=== PATIENT | male | born 1970 | race Caucasian/White ===

== ENCOUNTER 2017-04-13 14:51 | Outpatient (CLI) | payer OTHER ==
[2017-04-13 15:36] LABS: BASOPHILS % (AUTO) 0.5 % (0-1); EOSINOPHILS # (AUTO) 0.2 X10'3 (0-0.9); EOSINOPHILS % (AUTO) 3.7 % (0-6); HEMATOCRIT 41.4 % (42.0-52.0); HEMOGLOBIN 14.3 g/dl (14.0-17.9); LYMPHOCYTES # (AUTO) 1.3 X10'3 (1.1-4.8); LYMPHOCYTES % (AUTO) 31.8 % (21-51); MEAN CORPUSCULAR HEMOGLOBIN 30.3 PG (27.0-31.0); MEAN CORPUSCULAR HGB CONC 34.5 % (33.0-36.5); MEAN CORPUSCULAR VOLUME 87.8 FL (78-98); MEAN PLATELET VOLUME 7.9 FL (7.4-10.4); MONOCYTES # (AUTO) 0.3 X10'3 (0-0.9); NEUTROPHILS # (AUTO) 2.4 X10'3 (1.8-7.7); PLATELET COUNT 296 X10'3 (140-440); RED BLOOD COUNT 4.71 X10'6 (4.70-6.10); RED CELL DISTRIBUTION WIDTH 12.6 % (11.5-14.5); WHITE BLOOD COUNT 4.2 X10'3 (4.5-11.0)
[2017-04-13 15:46] LABS: CLARITY,URINE CLEAR (Clear); COLOR,URINE YELLOW (Yellow); GLUCOSE, URINE NEGATIVE (Neg); KETONES,URINE NEGATIVE (Neg); LEUKOCYTE ESTERASE ,URINE NEGATIVE (Neg); NITRITES, URINE NEGATIVE (Neg); OCCULT BLOOD,URINE NEGATIVE (Neg); PH,URINE 5.5 (4.8-8.0); PROTEIN,URINE NEGATIVE (Neg); UROBILINOGEN,URINE 0.2 E.U/dL (0.2-1.0)
[2017-04-13 15:50] LABS: UA COLLECTION TYPE CLN CATCH MIDSTREAM
[2017-04-13 16:00] LABS: ALANINE AMINOTRANSFERASE 39 U/L (12-78); ALBUMIN 3.8 G/DL (3.4-5.0); ALBUMIN/GLOBULIN RATIO 1.1 (1.1-1.5); ALKALINE PHOSPHATASE 46 IU/L (46-116); ANION GAP 8 (8-16); ASPARTATE AMINO TRANSFERASE 23 U/L (10-37); BILIRUBIN,TOTAL 0.5 MG/DL (0.1-1.0); BLOOD UREA NITROGEN 17 MG/DL (7-18); BUN/CREATININE RATIO 14.2 (5.4-32.0); CALCIUM 8.8 MG/DL (8.5-10.1); CHLORIDE 108 MMOL/L (99-107); CHOL/HDL RATIO 3.3 (0.00-4.99); CHOLESTEROL 157 MG/DL (0-200); GLUCOSE 94 MG/DL (70-104); HDL CHOLESTEROL 48 MG/DL (35-60); LDL CHOLESTEROL 103 MG/DL (50-100); POTASSIUM 3.6 MMOL/L (3.5-5.1); SODIUM 141 MMOL/L (135-145); TOTAL CARBON DIOXIDE 24.9 MMOL/L (24-32); TOTAL PROTEIN 7.4 G/DL (6.4-8.2); TRIGLYCERIDES 68 MG/DL (20-135); eGFR 65 ML/MIN
[2017-04-16 08:08] LABS: VITAMIN D, 25-HYDROXY 43.9 ng/mL (30.0-100.0)
== END 2017-04-13 23:59 | disposition home or self-care (01) ==
LOC: LAB 14:51
PROVIDERS: ATTEND General Practice
DX: E55.9 Vitamin D deficiency, unspecified (principal); E78.5 Hyperlipidemia, unspecified; Z79.899 Other long term (current) drug therapy
CPT/HCPCS: 36415; 80053; 80061; 81003; 82306; 82607; 84443; 85025

== ENCOUNTER 2017-11-19 15:46 | Emergency (ER) | payer OTHER ==
[~2017-11-19] VITALS: Ht 175.3 cm; Wt 87.7 kg
[~2017-11-19 15:46] MED LIST: HYDR-3965 PO
[2017-11-19 16:26] LABS: BASOPHILS % (AUTO) 0.2 % (0-1); EOSINOPHILS # (AUTO) 0.2 X10'3 (0-0.9); EOSINOPHILS % (AUTO) 2.4 % (0-6); HEMATOCRIT 39.8 % (42.0-52.0); HEMOGLOBIN 13.7 g/dl (14.0-17.9); LYMPHOCYTES # (AUTO) 1.1 X10'3 (1.1-4.8); LYMPHOCYTES % (AUTO) 13.7 % (21-51); MEAN CORPUSCULAR HEMOGLOBIN 30.5 PG (27.0-31.0); MEAN CORPUSCULAR HGB CONC 34.4 % (33.0-36.5); MEAN CORPUSCULAR VOLUME 88.8 FL (78-98); MEAN PLATELET VOLUME 7.1 FL (7.4-10.4); MONOCYTES # (AUTO) 0.6 X10'3 (0-0.9); MONOCYTES % (AUTO) 7.2 % (2-12); NEUTROPHILS # (AUTO) 5.9 X10'3 (1.8-7.7); NEUTROPHILS % (AUTO) 76.5 % (42-75); PLATELET COUNT 359 X10'3 (140-440); RED BLOOD COUNT 4.48 X10'6 (4.70-6.10); RED CELL DISTRIBUTION WIDTH 12.3 % (11.5-14.5); WHITE BLOOD COUNT 7.7 X10'3 (4.5-11.0)
[2017-11-19] MEDS ORDERED: normal saline 1000ML IV soln IVB ONE (16:35)
[2017-11-19] MEDS ORDERED: morphine 4 MG/ML inj SYRINge IV ONE (16:35)
[2017-11-19] MEDS ORDERED: pantoprazole 40 MG vial IV ONE (16:35)
[2017-11-19 16:40] LABS: ALANINE AMINOTRANSFERASE 90 U/L (12-78); ALBUMIN 3.2 G/DL (3.4-5.0); ALBUMIN/GLOBULIN RATIO 0.7 (1.1-1.5); ALKALINE PHOSPHATASE 85 IU/L (46-116); ANION GAP 8 (8-16); ASPARTATE AMINO TRANSFERASE 46 U/L (10-37); BILIRUBIN,TOTAL 0.5 MG/DL (0.1-1.0); BLOOD UREA NITROGEN 15 MG/DL (7-18); BUN/CREATININE RATIO 10.7 (5.4-32.0); CALCIUM 9.2 MG/DL (8.5-10.1); CHLORIDE 104 MMOL/L (99-107); GLUCOSE 129 MG/DL (70-104); LIPASE 120 U/L (73-393); POTASSIUM 3.5 MMOL/L (3.5-5.1); SODIUM 141 MMOL/L (135-145); TOTAL CARBON DIOXIDE 29.1 MMOL/L (24-32); TOTAL PROTEIN 7.8 G/DL (6.4-8.2); eGFR 54 ML/MIN
[2017-11-19] MEDS ORDERED: ondansetron/PF 4mg/2ml inj IV ONE (17:15)
[2017-11-19 18:32] VITALS: BP 134/98
== END 2017-11-19 19:26 | disposition home or self-care (01) ==
LOC: ER 15:47
DX: K80.20 Calculus of gallbladder without cholecystitis without obstruction (principal); E78.00 Pure hypercholesterolemia, unspecified; Z79.899 Other long term (current) drug therapy
CPT/HCPCS: 36415; 76700; 80053; 83690; 84484; 85025; 93005; 96361; 96374; 96375; 99285; C9113; J2270; J2405; J7030

== ENCOUNTER 2017-11-28 21:05 | Inpatient (IN) | payer OTHER ==
[~2017-11-28] VITALS: Ht 175.3 cm; Wt 84.5 kg
[~2017-11-28 21:05] MED LIST changes: +temazepam 15mg capsule PO PRN
[2017-11-28 22:10] LABS: BASOPHILS % (AUTO) 0.2 % (0-1); EOSINOPHILS # (AUTO) 0.3 X10'3 (0-0.9); EOSINOPHILS % (AUTO) 2.7 % (0-6); HEMATOCRIT 41.3 % (42.0-52.0); LYMPHOCYTES # (AUTO) 1.1 X10'3 (1.1-4.8); LYMPHOCYTES % (AUTO) 8.4 % (21-51); MEAN CORPUSCULAR HEMOGLOBIN 29.9 PG (27.0-31.0); MEAN CORPUSCULAR HGB CONC 33.9 % (33.0-36.5); MEAN CORPUSCULAR VOLUME 88.1 FL (78-98); MEAN PLATELET VOLUME 7.7 FL (7.4-10.4); MONOCYTES # (AUTO) 0.8 X10'3 (0-0.9); MONOCYTES % (AUTO) 6.4 % (2-12); NEUTROPHILS # (AUTO) 10.5 X10'3 (1.8-7.7); NEUTROPHILS % (AUTO) 82.3 % (42-75); PLATELET COUNT 475 X10'3 (140-440); RED BLOOD COUNT 4.69 X10'6 (4.70-6.10); RED CELL DISTRIBUTION WIDTH 12.4 % (11.5-14.5); WHITE BLOOD COUNT 12.8 X10'3 (4.5-11.0)
[2017-11-28 22:22] LABS: ALANINE AMINOTRANSFERASE 52 U/L (12-78); ALBUMIN 3.3 G/DL (3.4-5.0); ALBUMIN/GLOBULIN RATIO 0.7 (1.1-1.5); ALKALINE PHOSPHATASE 80 IU/L (46-116); ANION GAP 11 (8-16); ASPARTATE AMINO TRANSFERASE 50 U/L (10-37); BILIRUBIN,TOTAL 0.6 MG/DL (0.1-1.0); BLOOD UREA NITROGEN 17 MG/DL (7-18); BUN/CREATININE RATIO 12.6 (5.4-32.0); CALCIUM 9.1 MG/DL (8.5-10.1); CHLORIDE 102 MMOL/L (99-107); CREATININE 1.35 MG/DL (0.60-1.10); GLUCOSE 155 MG/DL (70-104); POTASSIUM 3.7 MMOL/L (3.5-5.1); SODIUM 138 MMOL/L (135-145); TOTAL CARBON DIOXIDE 25.5 MMOL/L (24-32); TOTAL PROTEIN 8.3 G/DL (6.4-8.2); eGFR 57 ML/MIN
[2017-11-28 22:24] LABS: PARTIAL THROMBOPLASTIN TIME 28 SECONDS (22-32); PROTHROMBIN TIME 10.4 SECONDS (9.0-12.0)
[2017-11-28] MEDS ORDERED: ondansetron/PF 4mg/2ml inj IV ONE (22:25)
[2017-11-28] MEDS ORDERED: morphine 4 MG/ML inj SYRINge IV ONE (22:25)
[2017-11-28] MEDS ORDERED: normal saline 1000ML IV soln IVB ONE (22:25)
[2017-11-28 22:29] LABS: CLARITY,URINE CLEAR (Clear); COLOR,URINE YELLOW (Yellow); GLUCOSE, URINE NEGATIVE (Neg); KETONES,URINE TRACE mg/dl (Neg); LEUKOCYTE ESTERASE ,URINE NEGATIVE (Neg); NITRITES, URINE NEGATIVE (Neg); OCCULT BLOOD,URINE NEGATIVE (Neg); PROTEIN,URINE NEGATIVE (Neg)
[2017-11-28] MEDS ORDERED: iohexol 350MG/ML 100ml bottle IV ONE (22:30)
[2017-11-28 22:41] LABS: UA COLLECTION TYPE CLN CATCH MIDSTREAM
[2017-11-28] MEDS ORDERED: levoFLOXACIN-Levaquin 750MG/D5 150 ML IV STA (22:59)
[2017-11-28] MEDS ORDERED: normal saline 1000ml 1,000 ML IV ONE (23:00)
[2017-11-28] MEDS ORDERED: heparin 10,000 units/1 ML INJ IV PRN (23:40)
[2017-11-28] MEDS ORDERED: heparin 10,000 units/1 ML INJ IV ONE ×2 (23:40→23:45)
[2017-11-28] MEDS ORDERED: morphine 2 MG/ML inj. syringe IV ONE (23:45)
[2017-11-29] VITALS (7 sets, daily range): BP systolic 110–133; BP diastolic 73–89
[2017-11-29] MEDS ORDERED: HYDROcodone/acetaminophen 5mg/325mg tablet PO PRN
[2017-11-29] MEDS ORDERED: diphenhydrAMINE 25mg capsule PO PRN
[2017-11-29] MEDS ORDERED: bisacodyl 10mg suppository rectal RC PRN
[2017-11-29] MEDS ORDERED: HYDROmorphone 1 mg/ml syringe IV PRN ×2
[2017-11-29] MEDS ORDERED: diphenhydrAMINE 50 mg/ml inj IV PRN
[2017-11-29] MEDS ORDERED: acetaminophen 650mg rectal suppository RC PRN
[2017-11-29] MEDS ORDERED: acetaminophen 325mg tablet PO PRN
[2017-11-29] MEDS ORDERED: HYDROcodone/acetaminophen 10/325mg tab PO PRN
[2017-11-29] MEDS ORDERED: mag hydrox/Alum hydrox/simeth 30ml oral suspension PO PRN
[2017-11-29] MEDS ORDERED: magnesium hydroxide 30ml (MOM) UD suspension PO PRN
[2017-11-29] MEDS ORDERED: morphine 2 MG/ML inj. syringe IV PRN
[2017-11-29 00:26] LABS: ABG BASE EXCESS -2.2 mmol/L (-2.0-3.0); ABG HCO3 21.4 mmol/L (22.0-26.0); ABG OXYGEN SATURATION 95.1 % (95-98); ABG PCO2 (T) 33.5 mmHg (35.0-48.0); ABG PH (T) 7.424 (7.350-7.450); ABG PO2 (T) 76.9 mmHg (83-108); ALLEN'S TEST Positive; FCOHb 0.7 % (0.5-1.5); FMetHb 0.1 % (0.3-1.12); FO2Hb 94.3 % (94-100); PATIENT TEMPERATURE 37.1; RESPIRATORY RATE (OBSERVED) 18 b/min; TOTAL HEMOGLOBIN 13.2 G/dl (14.0-18.0)
[2017-11-29] MEDS ORDERED: heparin 10,000 units/1 ML INJ IV ONE (00:40)
[2017-11-29] MEDS ORDERED: heparin 10,000 units/1 ML INJ IV PRN (00:40)
[2017-11-29] MEDS: normal saline 1000ml 1,000 ML IV SCH ×2 (01:56→09:08)
[2017-11-29 02:11] LABS: HEMOGLOBIN A1C 5.5 % (4.5-6.2)
[2017-11-29 02:16] LABS: CREATINE KINASE 39 U/L (39-308); LIPASE 123 U/L (73-393); MAGNESIUM 1.8 MG/DL (1.5-2.4); PHOSPHORUS 1.9 MG/DL (2.3-4.5)
[2017-11-29] MEDS: morphine 2 MG/ML inj. syringe IV PRN ×2 (02:23→06:24)
[2017-11-29] MEDS ORDERED: HYDROmorphone 1 mg/ml syringe IV ONE (03:55)
[2017-11-29] MEDS: ondansetron/PF 4mg/2ml inj IV PRN ×2 (04:09→12:34)
[2017-11-29 05:48] LABS: BASOPHILS % (AUTO) 0.3 % (0-1); EOSINOPHILS # (AUTO) 0.4 X10'3 (0-0.9); EOSINOPHILS % (AUTO) 2.5 % (0-6); HEMATOCRIT 36.7 % (42.0-52.0); HEMOGLOBIN 12.5 g/dl (14.0-17.9); LYMPHOCYTES # (AUTO) 1.2 X10'3 (1.1-4.8); LYMPHOCYTES % (AUTO) 8.1 % (21-51); MEAN CORPUSCULAR HEMOGLOBIN 30.6 PG (27.0-31.0); MEAN CORPUSCULAR HGB CONC 34.2 % (33.0-36.5); MEAN CORPUSCULAR VOLUME 89.4 FL (78-98); MEAN PLATELET VOLUME 7.6 FL (7.4-10.4); MONOCYTES # (AUTO) 1.3 X10'3 (0-0.9); MONOCYTES % (AUTO) 8.6 % (2-12); NEUTROPHILS # (AUTO) 12.2 X10'3 (1.8-7.7); NEUTROPHILS % (AUTO) 80.5 % (42-75); PLATELET COUNT 441 X10'3 (140-440); RED CELL DISTRIBUTION WIDTH 12.5 % (11.5-14.5); WHITE BLOOD COUNT 15.2 X10'3 (4.5-11.0)
[2017-11-29 06:05] LABS: ALANINE AMINOTRANSFERASE 51 U/L (12-78); ALBUMIN 2.8 G/DL (3.4-5.0); ALBUMIN/GLOBULIN RATIO 0.6 (1.1-1.5); ALKALINE PHOSPHATASE 76 IU/L (46-116); ANION GAP 11 (8-16); ASPARTATE AMINO TRANSFERASE 45 U/L (10-37); BILIRUBIN,TOTAL 0.6 MG/DL (0.1-1.0); BLOOD UREA NITROGEN 12 MG/DL (7-18); BUN/CREATININE RATIO 10.8 (5.4-32.0); CALCIUM 8.2 MG/DL (8.5-10.1); CHLORIDE 104 MMOL/L (99-107); CREATININE 1.11 MG/DL (0.60-1.10); GLUCOSE 123 MG/DL (70-104); POTASSIUM 3.7 MMOL/L (3.5-5.1); SODIUM 138 MMOL/L (135-145); TOTAL CARBON DIOXIDE 23.2 MMOL/L (24-32); TOTAL PROTEIN 7.4 G/DL (6.4-8.2); eGFR 71 ML/MIN
[2017-11-29 06:07] LABS: CHOL/HDL RATIO 2.7 (0.00-4.99); CHOLESTEROL 113 MG/DL (0-200); HDL CHOLESTEROL 42 MG/DL (35-60); LDL CHOLESTEROL 61 MG/DL (50-100); TRIGLYCERIDES 79 MG/DL (20-135)
[2017-11-29] MEDS: metoclopramide 5 mg/ml inj IV PRN ×2 (06:23→14:38)
[2017-11-29] MEDS: pantoprazole 40 MG vial IV SCH (07:13)
[2017-11-29] MEDS: docusate sod 100mg capsule PO SCH ×2 (07:13→19:51)
[2017-11-29] MEDS: levoFLOXACIN-Levaquin 750MG/D5 150 ML IV SCH (07:13)
[2017-11-29] MEDS ORDERED: potassium phosphate inj 15 MMOL in normal saline 250ml IV soln 245 ML IV ONE (12:10)
[2017-11-29] MEDS ORDERED: ibuprofen tablet 400 MG TABLET PO PRN (14:25)
[2017-11-29] MEDS: LIDOcaine 5% patch TP SCH (14:38)
[2017-11-29] MEDS: potassium Cl 20mEq in NS 1,000 ML IV SCH (17:28)
[2017-11-29] MEDS: ibuprofen tablet 400 MG TABLET PO PRN (23:19)
[2017-11-30 03:00] VITALS: BP 110/67
[2017-11-30 06:00] VITALS: BP 105/72
[2017-11-30 06:25] LABS: BASOPHILS % (AUTO) 0.4 % (0-1); EOSINOPHILS # (AUTO) 0.4 X10'3 (0-0.9); EOSINOPHILS % (AUTO) 4.1 % (0-6); HEMATOCRIT 34.2 % (42.0-52.0); HEMOGLOBIN 11.7 g/dl (14.0-17.9); LYMPHOCYTES # (AUTO) 1.3 X10'3 (1.1-4.8); LYMPHOCYTES % (AUTO) 12.7 % (21-51); MEAN CORPUSCULAR HEMOGLOBIN 30.8 PG (27.0-31.0); MEAN CORPUSCULAR HGB CONC 34.2 % (33.0-36.5); MEAN CORPUSCULAR VOLUME 90.2 FL (78-98); MEAN PLATELET VOLUME 7.8 FL (7.4-10.4); MONOCYTES % (AUTO) 9.4 % (2-12); NEUTROPHILS # (AUTO) 7.5 X10'3 (1.8-7.7); NEUTROPHILS % (AUTO) 73.4 % (42-75); PLATELET COUNT 358 X10'3 (140-440); RED CELL DISTRIBUTION WIDTH 12.6 % (11.5-14.5); WHITE BLOOD COUNT 10.1 X10'3 (4.5-11.0)
[2017-11-30 06:41] LABS: ALANINE AMINOTRANSFERASE 150 U/L (12-78); ALBUMIN 2.3 G/DL (3.4-5.0); ALBUMIN/GLOBULIN RATIO 0.5 (1.1-1.5); ALKALINE PHOSPHATASE 91 IU/L (46-116); ANION GAP 7 (8-16); ASPARTATE AMINO TRANSFERASE 104 U/L (10-37); BILIRUBIN,TOTAL 0.7 MG/DL (0.1-1.0); BLOOD UREA NITROGEN 11 MG/DL (7-18); BUN/CREATININE RATIO 9.5 (5.4-32.0); CALCIUM 8.7 MG/DL (8.5-10.1); CHLORIDE 107 MMOL/L (99-107); CREATININE 1.16 MG/DL (0.60-1.10); GLUCOSE 108 MG/DL (70-104); PHOSPHORUS 2.4 MG/DL (2.3-4.5); POTASSIUM 3.9 MMOL/L (3.5-5.1); SODIUM 141 MMOL/L (135-145); TOTAL CARBON DIOXIDE 27.3 MMOL/L (24-32); TOTAL PROTEIN 6.7 G/DL (6.4-8.2); eGFR 67 ML/MIN
[2017-11-30] MEDS ORDERED: FENO145T38 PO (07:55)
[2017-11-30] MEDS: LIDOcaine 5% patch TP SCH (08:00)
[2017-11-30] MEDS: pantoprazole 40 MG vial IV SCH (08:41)
[2017-11-30] MEDS: docusate sod 100mg capsule PO SCH ×2 (08:43→20:31)
[2017-11-30] MEDS: ibuprofen tablet 400 MG TABLET PO PRN ×2 (08:43→22:09)
[2017-11-30] MEDS: lactobacillus rhamnosus 10,000 MMU CELLS/CAPSULE PO SCH ×2 (08:43→20:31)
[2017-11-30] MEDS: levoFLOXACIN-Levaquin 750MG/D5 150 ML IV SCH (08:43)
[2017-11-30 11:00] VITALS: BP 122/74
[2017-11-30] MEDS: enoxaparin 80mg/0.8ml syringe SUBCUT SCH ×2 (11:00→20:31)
[2017-11-30] MEDS: potassium Cl 20mEq in NS 1,000 ML IV SCH (12:28)
[2017-11-30 15:00] VITALS: BP 109/63
[2017-11-30 19:00] VITALS: BP 111/78
[2017-11-30 23:00] VITALS: BP 116/66
[2017-12-01] MEDS: potassium Cl 20mEq in NS 1,000 ML IV SCH ×2 (00:58→07:42)
[2017-12-01 03:00] VITALS: BP 117/72
[2017-12-01 05:56] LABS: BASOPHILS % (AUTO) 0.5 % (0-1); EOSINOPHILS # (AUTO) 0.4 X10'3 (0-0.9); HEMATOCRIT 30.9 % (42.0-52.0); HEMOGLOBIN 10.7 g/dl (14.0-17.9); LYMPHOCYTES # (AUTO) 1.8 X10'3 (1.1-4.8); LYMPHOCYTES % (AUTO) 19.8 % (21-51); MEAN CORPUSCULAR HEMOGLOBIN 30.7 PG (27.0-31.0); MEAN CORPUSCULAR HGB CONC 34.5 % (33.0-36.5); MEAN PLATELET VOLUME 7.8 FL (7.4-10.4); MONOCYTES # (AUTO) 0.7 X10'3 (0-0.9); MONOCYTES % (AUTO) 8.1 % (2-12); NEUTROPHILS % (AUTO) 66.6 % (42-75); PLATELET COUNT 377 X10'3 (140-440); RED BLOOD COUNT 3.48 X10'6 (4.70-6.10); RED CELL DISTRIBUTION WIDTH 12.5 % (11.5-14.5); WHITE BLOOD COUNT 9.1 X10'3 (4.5-11.0)
[2017-12-01 06:00] VITALS: BP 132/86
[2017-12-01 06:51] LABS: ALANINE AMINOTRANSFERASE 167 U/L (12-78); ALBUMIN 2.2 G/DL (3.4-5.0); ALBUMIN/GLOBULIN RATIO 0.5 (1.1-1.5); ALKALINE PHOSPHATASE 106 IU/L (46-116); ANION GAP 11 (8-16); ASPARTATE AMINO TRANSFERASE 89 U/L (10-37); BILIRUBIN,TOTAL 0.3 MG/DL (0.1-1.0); BLOOD UREA NITROGEN 15 MG/DL (7-18); BUN/CREATININE RATIO 12.7 (5.4-32.0); CALCIUM 8.7 MG/DL (8.5-10.1); CHLORIDE 110 MMOL/L (99-107); CREATININE 1.18 MG/DL (0.60-1.10); GLUCOSE 105 MG/DL (70-104); POTASSIUM 3.7 MMOL/L (3.5-5.1); SODIUM 143 MMOL/L (135-145); TOTAL CARBON DIOXIDE 21.7 MMOL/L (24-32); TOTAL PROTEIN 6.5 G/DL (6.4-8.2); eGFR 66 ML/MIN
[2017-12-01] MEDS ORDERED: pantoprazole 40mg Tablet.DR PO SCH (07:30)
[2017-12-01] MEDS: lactobacillus rhamnosus 10,000 MMU CELLS/CAPSULE PO SCH (07:35)
[2017-12-01] MEDS: docusate sod 100mg capsule PO SCH (07:35)
[2017-12-01] MEDS: enoxaparin 80mg/0.8ml syringe SUBCUT SCH (07:35)
[2017-12-01] MEDS: LIDOcaine 5% patch TP SCH (07:38)
[2017-12-01 11:00] VITALS: BP 125/84
[2017-12-01] MEDS ORDERED: levoFLOXACIN 750MG TABLET PO SCH (11:00)
[2017-12-01] MEDS ORDERED: APIX5TAB3 PO (14:08)
[2017-12-01] MEDS ORDERED: LEVO500T89 PO (14:08)
== END 2017-12-01 15:11 | disposition home or self-care (01) | DRG 871 ==
LOC: ER 21:06 → ED HOLD 23:58 → PCU 3S 11-29 01:39
PROVIDERS: ADMIT Family Medicine; ATTEND Family Medicine
PROC: B32T1ZZ Computerized Tomography (CT Scan) of Left Pulmonary Artery using Low Osmolar Contrast (ICD-10-PCS; principal; 2017-11-28)
PROC: B3201ZZ Computerized Tomography (CT Scan) of Thoracic Aorta using Low Osmolar Contrast (ICD-10-PCS; 2017-11-28)
PROC: B32S1ZZ Computerized Tomography (CT Scan) of Right Pulmonary Artery using Low Osmolar Contrast (ICD-10-PCS; 2017-11-28)
DX: A41.9 Sepsis, unspecified organism (principal); I26.99 Other pulmonary embolism without acute cor pulmonale; J18.9 Pneumonia, unspecified organism; J90 Pleural effusion, not elsewhere classified; K80.10 Calculus of gallbladder with chronic cholecystitis without obstruction; E78.00 Pure hypercholesterolemia, unspecified; E83.39 Other disorders of phosphorus metabolism; E86.0 Dehydration; I10 Essential (primary) hypertension; R09.02 Hypoxemia; Z79.899 Other long term (current) drug therapy
CPT/HCPCS: 36415; 36600; 71045; 71275; 74176; 80053; 80061; 81003; 81479; 82550; 82803; 83036; 83605; 83690; 83735; 83880; 83891; 83894; 83898; 84100; 84484; 85018; 85025; 85303; 85610; 85730; 87040; 87070; 93005; 93306; 93970; 94760; 96361; 96374; 96375; 96376; 99285; C9113; J1170; J1644; J1650; J1956; J2270; J2405; J2765; J7030; Q9967

== ENCOUNTER 2017-12-29 23:18 | Emergency (ER) | payer OTHER ==
[~2017-12-29] VITALS: Ht 177.8 cm; Wt 86.0 kg
[~2017-12-29 23:18] MED LIST changes: +APIX5TAB3 PO; +FENO145T38 PO; -HYDR-3965 PO; -temazepam 15mg capsule PO PRN
[2017-12-29] MEDS ORDERED: normal saline 1000ML IV soln IVB ONE (23:30)
[2017-12-29] MEDS ORDERED: morphine 4 MG/ML inj SYRINge IV ONE ×2 (23:30)
[2017-12-29] MEDS ORDERED: ondansetron/PF 4mg/2ml inj IV ONE ×2 (23:30)
[2017-12-29 23:36] LABS: BASOPHILS % (AUTO) 0.4 % (0-1); EOSINOPHILS # (AUTO) 0.3 X10'3 (0-0.9); EOSINOPHILS % (AUTO) 4.2 % (0-6); HEMATOCRIT 41.2 % (42.0-52.0); HEMOGLOBIN 13.5 g/dl (14.0-17.9); LYMPHOCYTES # (AUTO) 1.9 X10'3 (1.1-4.8); LYMPHOCYTES % (AUTO) 25.9 % (21-51); MEAN CORPUSCULAR HEMOGLOBIN 29.4 PG (27.0-31.0); MEAN CORPUSCULAR HGB CONC 32.9 % (33.0-36.5); MEAN CORPUSCULAR VOLUME 89.4 FL (78-98); MEAN PLATELET VOLUME 7.4 FL (7.4-10.4); MONOCYTES # (AUTO) 0.6 X10'3 (0-0.9); MONOCYTES % (AUTO) 7.6 % (2-12); NEUTROPHILS # (AUTO) 4.5 X10'3 (1.8-7.7); NEUTROPHILS % (AUTO) 61.9 % (42-75); PLATELET COUNT 367 X10'3 (140-440); RED BLOOD COUNT 4.61 X10'6 (4.70-6.10); WHITE BLOOD COUNT 7.3 X10'3 (4.5-11.0)
[2017-12-29 23:54] LABS: ALANINE AMINOTRANSFERASE 34 U/L (12-78); ALBUMIN 3.9 G/DL (3.4-5.0); ALBUMIN/GLOBULIN RATIO 0.9 (1.1-1.5); ALKALINE PHOSPHATASE 60 IU/L (46-116); AMYLASE 74 U/L (25-115); ANION GAP 11 (8-16); ASPARTATE AMINO TRANSFERASE 20 U/L (10-37); BILIRUBIN,TOTAL 0.5 MG/DL (0.1-1.0); BLOOD UREA NITROGEN 18 MG/DL (7-18); BUN/CREATININE RATIO 12.5 (5.4-32.0); CALCIUM 9.5 MG/DL (8.5-10.1); CHLORIDE 106 MMOL/L (99-107); CREATININE 1.44 MG/DL (0.60-1.10); GLUCOSE 117 MG/DL (70-104); LIPASE 174 U/L (73-393); POTASSIUM 3.4 MMOL/L (3.5-5.1); SODIUM 145 MMOL/L (135-145); TOTAL CARBON DIOXIDE 28.3 MMOL/L (24-32); TOTAL PROTEIN 8.2 G/DL (6.4-8.2); eGFR 53 ML/MIN
[2017-12-30] MEDS ORDERED: morphine 4 MG/ML inj SYRINge IV ONE (00:05)
[2017-12-30 00:19] LABS: PROTHROMBIN TIME 10.6 SECONDS (9.0-12.0)
[2017-12-30 00:27] LABS: TROPONIN I < 0.04 NG/ML (0.0-0.05)
[2017-12-30 00:59] VITALS: BP 139/89
== END 2017-12-30 03:02 | disposition home or self-care (01) ==
LOC: ER 23:19
DX: K80.50 Calculus of bile duct without cholangitis or cholecystitis without obstruction (principal); E78.00 Pure hypercholesterolemia, unspecified; Z79.01 Long term (current) use of anticoagulants; Z79.899 Other long term (current) drug therapy
CPT/HCPCS: 36415; 76705; 80053; 82150; 83690; 84484; 85025; 85610; 96361; 96374; 96375; 96376; 99285; J2270; J2405

== ENCOUNTER 2018-01-16 11:02 | Day surgery (SDC) | payer OTHER ==
[~2018-01-16] VITALS: Ht 175.3 cm; Wt 85.8 kg
[2018-01-16] VITALS (10 sets, daily range): BP systolic 118–145; BP diastolic 80–102
[~2018-01-16 11:02] MED LIST changes: +CHOL2000 PO; +OMEP20CA10 PO; +albuterol 2.5 MG/3 ML nebule NEB ONE; +cefazolin/dext.iso 2gm/100 ML IV ONE; +famotidine 20mg tablet PO ONE; +ringers solution, lacted 1,000 ML IV SCH
[2018-01-16] MEDS ORDERED: LIDOcaine 1% (10mg/ml) 2ml vial ONE (11:39)
[2018-01-16 11:45] LABS: BASOPHILS % (AUTO) 0.6 % (0-1); EOSINOPHILS # (AUTO) 0.2 X10'3 (0-0.9); EOSINOPHILS % (AUTO) 3.4 % (0-6); LYMPHOCYTES # (AUTO) 1.8 X10'3 (1.1-4.8); LYMPHOCYTES % (AUTO) 30.9 % (21-51); MEAN CORPUSCULAR HEMOGLOBIN 29.5 PG (27.0-31.0); MEAN CORPUSCULAR HGB CONC 33.3 % (33.0-36.5); MEAN CORPUSCULAR VOLUME 88.6 FL (78-98); MEAN PLATELET VOLUME 7.4 FL (7.4-10.4); MONOCYTES # (AUTO) 0.5 X10'3 (0-0.9); MONOCYTES % (AUTO) 7.7 % (2-12); NEUTROPHILS # (AUTO) 3.4 X10'3 (1.8-7.7); NEUTROPHILS % (AUTO) 57.4 % (42-75); PRE OP HEMATOCRIT 41.2 % (42.0-52.0); PRE OP HEMOGLOBIN 13.7 g/dL (14.0-17.9); PRE OP PLATELET COUNT 343 X10'3 (140-440); RED BLOOD COUNT 4.66 X10'6 (4.70-6.10); RED CELL DISTRIBUTION WIDTH 14.1 % (11.5-14.5)
[2018-01-16 11:58] LABS: ALBUMIN 3.8 G/DL (3.4-5.0); ALBUMIN/GLOBULIN RATIO 0.9 (1.1-1.5); ALKALINE PHOSPHATASE 58 IU/L (46-116); BLOOD UREA NITROGEN 19 MG/DL (7-18); BUN/CREATININE RATIO 14.6 (5.4-32.0); CALCIUM 9.2 MG/DL (8.5-10.1); CHLORIDE 106 MMOL/L (99-107); PRE OP ALT 30 U/L (30-65); PRE OP ANION GAP 7 (8-16); PRE OP AST 19 U/L (10-37); PRE OP BILIRUB, TOTAL 0.7 MG/DL (0.0-1.0); PRE OP GLUCOSE 98 MG/DL (70-104); PRE OP POTASSIUM 3.5 MMOL/L (3.4-5.1); PRE OP SODIUM 141 MMOL/L (135-145); TOTAL CARBON DIOXIDE 28.3 MMOL/L (24-32); TOTAL PROTEIN 7.9 G/DL (6.4-8.2); eGFR 59 ML/MIN
[2018-01-16] MEDS ORDERED: ringers solution, lacted 1,000 ML IV SCH (12:13)
[2018-01-16] MEDS ORDERED: ondansetron/PF 4mg/2ml inj IV PRN (12:15)
[2018-01-16] MEDS ORDERED: labetalol 20mg/4ml (5mg/ml) syringe IV PRN (12:15)
[2018-01-16] MEDS ORDERED: hydrALAZINE 20mg/ml inj. IV PRN (12:15)
[2018-01-16] MEDS ORDERED: morphine 4 MG/ML inj SYRINge IV PRN ×2 (12:15)
[2018-01-16] MEDS ORDERED: fentaNYL/PF 50MCG/1 ML 2ML syringe IV PRN ×2 (12:15)
[2018-01-16] MEDS ORDERED: BUPIVAcaine/PF 2.5mg/ml (0.25%) 10ml vial ONE (12:27)
[2018-01-16] MEDS ORDERED: LIDOcaine 1% 30ml preserv. free vial ONE (12:27)
[2018-01-16] MEDS ORDERED: propofol inj 20 ML IV ONE (12:52)
[2018-01-16] MEDS ORDERED: fentaNYL/PF 50MCG/1 ML 2ML syringe ONE (12:52)
[2018-01-16] MEDS ORDERED: LIDOcaine 2% (20mg/ml) 5ml vial ONE ×2 (12:52→12:54)
[2018-01-16] MEDS ORDERED: rocuronium 10mg/ml inj IV ONE (12:53)
[2018-01-16] MEDS ORDERED: neostigmine methylsulfate 1 MG/ML 10ml vial ONE (12:53)
[2018-01-16] MEDS ORDERED: glycopyrrolate 0.2mg/ml inj ONE (12:53)
[2018-01-16] MEDS ORDERED: ondansetron/PF 4mg/2ml inj ONE (12:53)
[2018-01-16] MEDS ORDERED: sevoflurane 250ml liquid IH ONE (12:53)
[2018-01-16] MEDS ORDERED: dexamethasone sod phosphate 4mg/ml inj. ONE (13:03)
[2018-01-16] MEDS ORDERED: HYDROcodone/acetaminophen 5mg/325mg tablet PO PRN (14:20)
[2018-01-16] MEDS ORDERED: APIX5TAB3 PO (14:28)
== END 2018-01-16 15:14 | disposition home or self-care (01) ==
LOC: PAS 11:02
PROVIDERS: ATTEND Surgery
DX: K80.10 Calculus of gallbladder with chronic cholecystitis without obstruction (principal); K66.0 Peritoneal adhesions (postprocedural) (postinfection); K21.9 Gastro-esophageal reflux disease without esophagitis; F41.8 Other specified anxiety disorders; E78.5 Hyperlipidemia, unspecified; Z87.01 Personal history of pneumonia (recurrent); Z72.89 Other problems related to lifestyle; Z91.013 Allergy to seafood; Z86.711 Personal history of pulmonary embolism; Z79.01 Long term (current) use of anticoagulants; Z79.899 Other long term (current) drug therapy; Z98.890 Other specified postprocedural states
CPT/HCPCS: 36415; 47562; 71045; 80053; 85025; J0690; J1100; J2001; J2405; J2704; J2710; J3010; J3490; J7120; A7000

== ENCOUNTER 2018-04-18 08:55 | Outpatient (CLI) | payer OTHER ==
[~2018-04-18 08:55] MED LIST changes: -albuterol 2.5 MG/3 ML nebule NEB ONE; -cefazolin/dext.iso 2gm/100 ML IV ONE; -famotidine 20mg tablet PO ONE; +iohexol 350MG/ML 100ml bottle IV ONE; -ringers solution, lacted 1,000 ML IV SCH
== END 2018-04-18 23:59 | disposition home or self-care (01) ==
LOC: 64 CT 08:55
PROVIDERS: ATTEND General Practice
DX: J98.11 Atelectasis (principal); Z90.49 Acquired absence of other specified parts of digestive tract; Z79.899 Other long term (current) drug therapy; Z72.89 Other problems related to lifestyle; Z91.013 Allergy to seafood; Z88.8 Allergy status to other drugs, medicaments and biological substances
CPT/HCPCS: 71275; Q9967

== ENCOUNTER 2018-04-20 14:53 | Outpatient (CLI) | payer OTHER ==
[~2018-04-20 14:53] MED LIST changes: -iohexol 350MG/ML 100ml bottle IV ONE
[2018-04-20 15:41] LABS: BASOPHILS % (AUTO) 0.4 % (0-1); EOSINOPHILS # (AUTO) 0.2 X10'3 (0-0.9); EOSINOPHILS % (AUTO) 3.3 % (0-6); HEMATOCRIT 45.3 % (42.0-52.0); HEMOGLOBIN 15.3 g/dl (14.0-17.9); LYMPHOCYTES # (AUTO) 1.7 X10'3 (1.1-4.8); LYMPHOCYTES % (AUTO) 30.9 % (21-51); MEAN CORPUSCULAR HEMOGLOBIN 30.2 PG (27.0-31.0); MEAN CORPUSCULAR HGB CONC 33.8 g/dL (33.0-36.5); MEAN CORPUSCULAR VOLUME 89.4 FL (78-98); MEAN PLATELET VOLUME 7.7 FL (7.4-10.4); MONOCYTES # (AUTO) 0.4 X10'3 (0-0.9); MONOCYTES % (AUTO) 7.9 % (2-12); NEUTROPHILS # (AUTO) 3.2 X10'3 (1.8-7.7); NEUTROPHILS % (AUTO) 57.5 % (42-75); PLATELET COUNT 322 X10'3 (140-440); RED BLOOD COUNT 5.07 X10'6 (4.70-6.10); RED CELL DISTRIBUTION WIDTH 13.3 % (11.5-14.5); WHITE BLOOD COUNT 5.6 X10'3 (4.5-11.0)
[2018-04-20 15:52] LABS: CLARITY,URINE CLEAR (Clear); COLOR,URINE YELLOW (Yellow); GLUCOSE, URINE NEGATIVE (Neg); KETONES,URINE NEGATIVE (Neg); LEUKOCYTE ESTERASE ,URINE NEGATIVE (Neg); NITRITES, URINE NEGATIVE (Neg); OCCULT BLOOD,URINE NEGATIVE (Neg); PROTEIN,URINE NEGATIVE (Neg); UA COLLECTION TYPE NON-SPECIFIED; UROBILINOGEN,URINE 0.2 E.U/dL (0.2-1.0)
[2018-04-20 16:13] LABS: ALANINE AMINOTRANSFERASE 43 U/L (12-78); ALBUMIN 3.9 G/DL (3.4-5.0); ALKALINE PHOSPHATASE 50 IU/L (46-116); ANION GAP 11 (8-16); ASPARTATE AMINO TRANSFERASE 26 U/L (10-37); BILIRUBIN,TOTAL 0.7 MG/DL (0.1-1.0); BLOOD UREA NITROGEN 16 MG/DL (7-18); BUN/CREATININE RATIO 12.4 (5.4-32.0); CALCIUM 9.1 MG/DL (8.5-10.1); CHLORIDE 104 MMOL/L (99-107); CHOL/HDL RATIO 3.4 (0.00-4.99); CHOLESTEROL 160 MG/DL (0-200); CREATININE 1.29 MG/DL (0.60-1.10); GLUCOSE 92 MG/DL (70-104); HDL CHOLESTEROL 47 MG/DL (35-60); LDL CHOLESTEROL 105 MG/DL (50-100); POTASSIUM 3.7 MMOL/L (3.5-5.1); SODIUM 141 MMOL/L (135-145); TOTAL CARBON DIOXIDE 26.4 MMOL/L (24-32); TOTAL PROTEIN 7.8 G/DL (6.4-8.2); TRIGLYCERIDES 60 MG/DL (20-135); eGFR 59 ML/MIN
[2018-04-23 08:12] LABS: VITAMIN D, 25-HYDROXY 33.2 ng/mL (30.0-100.0)
== END 2018-04-20 23:59 | disposition home or self-care (01) ==
LOC: LAB 14:53
PROVIDERS: ATTEND General Practice
DX: E55.9 Vitamin D deficiency, unspecified (principal); E78.5 Hyperlipidemia, unspecified; Z79.899 Other long term (current) drug therapy; Z91.013 Allergy to seafood
CPT/HCPCS: 36415; 80053; 80061; 81003; 82306; 82607; 84443; 85025

== ENCOUNTER → 2018-05-11 | Outpatient (CLI) | payer OTHER | END | disposition home or self-care (01) | LOC: RAD 14:33 | PROVIDERS: ATTEND General Practice | DX: M19.011 Primary osteoarthritis, right shoulder (principal); M25.811 Other specified joint disorders, right shoulder | CPT/HCPCS: 73221 ==

== ENCOUNTER 2019-04-02 11:32 | Outpatient (CLI) | payer OTHER ==
[~2019-04-02 11:32] MED LIST changes: -OMEP20CA10 PO; +OMEP20CA15 PO
[2019-04-02 12:37] LABS: BASOPHILS % (AUTO) 0.6 % (0-1); EOSINOPHILS # (AUTO) 0.2 X10'3 (0-0.9); EOSINOPHILS % (AUTO) 3.6 % (0-6); HEMATOCRIT 46.3 % (42.0-52.0); HEMOGLOBIN 15.8 g/dl (14.0-17.9); LYMPHOCYTES # (AUTO) 1.4 X10'3 (1.1-4.8); LYMPHOCYTES % (AUTO) 31.2 % (21-51); MEAN CORPUSCULAR HEMOGLOBIN 30.5 PG (27.0-31.0); MEAN CORPUSCULAR HGB CONC 34.2 g/dL (33.0-36.5); MEAN CORPUSCULAR VOLUME 89.2 FL (78-98); MEAN PLATELET VOLUME 7.9 FL (7.4-10.4); MONOCYTES # (AUTO) 0.3 X10'3 (0-0.9); MONOCYTES % (AUTO) 6.9 % (2-12); NEUTROPHILS # (AUTO) 2.7 X10'3 (1.8-7.7); NEUTROPHILS % (AUTO) 57.7 % (42-75); PLATELET COUNT 346 X10'3 (140-440); RED BLOOD COUNT 5.19 X10'6 (4.70-6.10); RED CELL DISTRIBUTION WIDTH 12.9 % (11.5-14.5); WHITE BLOOD COUNT 4.6 X10'3 (4.5-11.0)
[2019-04-02 13:01] LABS: CLARITY,URINE CLEAR (Clear); COLOR,URINE STRAW (Yellow); GLUCOSE, URINE NEGATIVE (Neg); KETONES,URINE NEGATIVE (Neg); LEUKOCYTE ESTERASE ,URINE NEGATIVE (Neg); NITRITES, URINE NEGATIVE (Neg); OCCULT BLOOD,URINE NEGATIVE (Neg); PROTEIN,URINE NEGATIVE (Neg); UROBILINOGEN,URINE 0.2 E.U/dL (0.2-1.0)
[2019-04-02 13:07] LABS: UA COLLECTION TYPE VOIDED
[2019-04-02 15:24] LABS: ANION GAP 10 (8-16); BLOOD UREA NITROGEN 14 MG/DL (7-18); BUN/CREATININE RATIO 11.5 (5.4-32.0); CHLORIDE 107 MMOL/L (99-107); CREATININE 1.22 MG/DL (0.60-1.10); GLUCOSE 96 MG/DL (70-104); POTASSIUM 3.6 MMOL/L (3.5-5.1); SODIUM 144 MMOL/L (135-145); TOTAL CARBON DIOXIDE 26.9 MMOL/L (24-32)
[2019-04-02 15:25] LABS: ALANINE AMINOTRANSFERASE 46 U/L (12-78); ALKALINE PHOSPHATASE 52 IU/L (46-116); ASPARTATE AMINO TRANSFERASE 27 U/L (10-37); BILIRUBIN,TOTAL 0.4 MG/DL (0.1-1.0); CALCIUM 8.9 MG/DL (8.5-10.1); CHOL/HDL RATIO 3.4 (0.00-4.99); CHOLESTEROL 159 MG/DL (0-200); HDL CHOLESTEROL 47 MG/DL (35-60); LDL CHOLESTEROL 102 MG/DL (50-100); TOTAL PROTEIN 8.1 G/DL (6.4-8.2); TRIGLYCERIDES 65 MG/DL (20-135); eGFR 63 ML/MIN
[2019-04-03 05:39] LABS: VITAMIN D, 25-HYDROXY 59.3 ng/mL (30.0-100.0)
== END 2019-04-02 23:59 | disposition home or self-care (01) ==
LOC: LAB 11:32
PROVIDERS: ATTEND General Practice
DX: E55.9 Vitamin D deficiency, unspecified (principal); E78.5 Hyperlipidemia, unspecified; Z79.899 Other long term (current) drug therapy
CPT/HCPCS: 36415; 80053; 80061; 81003; 82306; 82607; 84443; 85025

== ENCOUNTER 2020-03-14 01:18 | Emergency (ER) | payer BC, OTHER ==
[~2020-03-14] VITALS: Ht 175.3 cm; Wt 88.2 kg
[2020-03-14 01:20] VITALS: BP 143/97
== END 2020-03-14 01:45 | disposition home or self-care (01) ==
LOC: ER 01:19
DX: J22 Unspecified acute lower respiratory infection (principal); Z20.828 Contact with and (suspected) exposure to other viral communicable diseases; E78.00 Pure hypercholesterolemia, unspecified; Z86.711 Personal history of pulmonary embolism; Z72.89 Other problems related to lifestyle; Z91.013 Allergy to seafood; Z79.899 Other long term (current) drug therapy
CPT/HCPCS: 87635; 99283; C9803

== ENCOUNTER 2020-03-30 14:08 | Outpatient (CLI) | payer BC ==
[2020-03-30 14:56] LABS: CLARITY,URINE CLEAR (Clear); COLOR,URINE STRAW (Yellow); GLUCOSE, URINE NEGATIVE (Neg); KETONES,URINE NEGATIVE (Neg); LEUKOCYTE ESTERASE ,URINE NEGATIVE (Neg); NITRITES, URINE NEGATIVE (Neg); OCCULT BLOOD,URINE NEGATIVE (Neg); PROTEIN,URINE NEGATIVE (Neg); UROBILINOGEN,URINE 0.2 E.U/dL (0.2-1.0)
[2020-03-30 14:58] LABS: BASOPHILS % (AUTO) 0.9 % (0-1); EOSINOPHILS # (AUTO) 0.1 X10'3 (0-0.9); EOSINOPHILS % (AUTO) 2.9 % (0-6); HEMATOCRIT 43.6 % (42.0-52.0); HEMOGLOBIN 14.5 g/dl (14.0-17.9); LYMPHOCYTES # (AUTO) 1.6 X10'3 (1.1-4.8); LYMPHOCYTES % (AUTO) 32.7 % (21-51); MEAN CORPUSCULAR HEMOGLOBIN 29.9 PG (27.0-31.0); MEAN CORPUSCULAR HGB CONC 33.4 g/dL (33.0-36.5); MEAN CORPUSCULAR VOLUME 89.7 FL (78-98); MEAN PLATELET VOLUME 7.6 FL (7.4-10.4); MONOCYTES # (AUTO) 0.3 X10'3 (0-0.9); MONOCYTES % (AUTO) 6.3 % (2-12); NEUTROPHILS # (AUTO) 2.7 X10'3 (1.8-7.7); NEUTROPHILS % (AUTO) 57.2 % (42-75); PLATELET COUNT 346 X10'3 (140-440); RED BLOOD COUNT 4.86 X10'6 (4.70-6.10); RED CELL DISTRIBUTION WIDTH 13.1 % (11.5-14.5); WHITE BLOOD COUNT 4.7 X10'3 (4.5-11.0)
[2020-03-30 15:01] LABS: UA COLLECTION TYPE VOIDED
[2020-03-30 15:18] LABS: ALANINE AMINOTRANSFERASE 49 U/L (12-78); ALBUMIN 3.8 G/DL (3.4-5.0); ALKALINE PHOSPHATASE 50 IU/L (46-116); ANION GAP 9 (8-16); ASPARTATE AMINO TRANSFERASE 24 U/L (10-37); BILIRUBIN,TOTAL 0.5 MG/DL (0.1-1.0); BLOOD UREA NITROGEN 15 MG/DL (7-18); BUN/CREATININE RATIO 12.3 (5.4-32.0); CALCIUM 8.8 MG/DL (8.5-10.1); CHLORIDE 106 MMOL/L (99-107); CHOL/HDL RATIO 3.2 (0.00-4.99); CHOLESTEROL 155 MG/DL (0-200); CREATININE 1.22 MG/DL (0.60-1.10); GLUCOSE 96 MG/DL (70-104); HDL CHOLESTEROL 48 MG/DL (35-60); LDL CHOLESTEROL 98 MG/DL (50-100); POTASSIUM 3.6 MMOL/L (3.5-5.1); SODIUM 142 MMOL/L (135-145); TOTAL CARBON DIOXIDE 27.3 MMOL/L (24-32); TOTAL PROTEIN 7.8 G/DL (6.4-8.2); TRIGLYCERIDES 130 MG/DL (20-135); eGFR 63 ML/MIN
== END 2020-03-30 23:59 | disposition home or self-care (01) ==
LOC: RAD 14:08
PROVIDERS: ATTEND General Practice
DX: E55.9 Vitamin D deficiency, unspecified (principal); E78.5 Hyperlipidemia, unspecified; Z79.899 Other long term (current) drug therapy
CPT/HCPCS: 36415; 80053; 80061; 81003; 82306; 82607; 84443; 85025

== ENCOUNTER 2020-06-22 06:06 | Day surgery (SDC) | payer BC ==
[~2020-06-22] VITALS: Ht 177.8 cm; Wt 86.8 kg
[2020-06-22 06:12] VITALS: BP 125/83
[2020-06-22] MEDS ORDERED: ASPI-611 PO (06:32)
[2020-06-22] MEDS ORDERED: fentaNYL/PF 50MCG/1 ML 2ML syringe ONE ×2 (07:01)
[2020-06-22] MEDS ORDERED: MIDAZolam 1 MG/ML 5ML VIAL ONE (07:01)
[2020-06-22 07:18] VITALS: BP 120/69
[2020-06-22 07:28] VITALS: BP 118/71
[2020-06-22 07:38] VITALS: BP 115/73
[2020-06-22 07:48] VITALS: BP 124/73
== END 2020-06-22 07:55 | disposition home or self-care (01) ==
LOC: GI LAB 06:06
PROVIDERS: ATTEND Internal Medicine Gastroenterology
DX: Z12.11 Encounter for screening for malignant neoplasm of colon (principal); E78.1 Pure hyperglyceridemia; Z79.899 Other long term (current) drug therapy; Z86.711 Personal history of pulmonary embolism; Z87.19 Personal history of other diseases of the digestive system
CPT/HCPCS: 45378; 99152; J2250; J3010; J7040; A4620

== ENCOUNTER 2021-03-31 12:23 | Outpatient (CLI) | payer BC ==
[~2021-03-31 12:23] MED LIST changes: -APIX5TAB3 PO; +ASPI-611 PO; -OMEP20CA15 PO
[2021-03-31 13:24] LABS: CLARITY,URINE CLEAR (Clear); COLOR,URINE YELLOW (Yellow); GLUCOSE, URINE NEGATIVE (Neg); KETONES,URINE NEGATIVE (Neg); LEUKOCYTE ESTERASE ,URINE NEGATIVE (Neg); NITRITES, URINE NEGATIVE (Neg); OCCULT BLOOD,URINE NEGATIVE (Neg); PH,URINE 5.5 (4.8-8.0); PROTEIN,URINE NEGATIVE (Neg); UROBILINOGEN,URINE 0.2 E.U/dL (0.2-1.0)
[2021-03-31 13:25] LABS: UA COLLECTION TYPE CLN CATCH MIDSTREAM
[2021-03-31 13:45] LABS: BASOPHILS % (AUTO) 0.5 % (0-1); EOSINOPHILS # (AUTO) 0.2 X10'3 (0-0.9); EOSINOPHILS % (AUTO) 3.6 % (0-6); HEMATOCRIT 44.3 % (42.0-52.0); HEMOGLOBIN 14.8 g/dl (14.0-17.9); LYMPHOCYTES # (AUTO) 1.6 X10'3 (1.1-4.8); LYMPHOCYTES % (AUTO) 33.1 % (21-51); MEAN CORPUSCULAR HEMOGLOBIN 30.3 PG (27.0-31.0); MEAN CORPUSCULAR HGB CONC 33.5 g/dL (33.0-36.5); MEAN CORPUSCULAR VOLUME 90.3 FL (78-98); MEAN PLATELET VOLUME 8.1 FL (7.4-10.4); MONOCYTES # (AUTO) 0.4 X10'3 (0-0.9); MONOCYTES % (AUTO) 7.3 % (2-12); NEUTROPHILS # (AUTO) 2.7 X10'3 (1.8-7.7); NEUTROPHILS % (AUTO) 55.5 % (42-75); PLATELET COUNT 326 X10'3 (140-440); RED CELL DISTRIBUTION WIDTH 12.9 % (11.5-14.5); WHITE BLOOD COUNT 4.8 X10'3 (4.5-11.0)
[2021-03-31 14:01] LABS: ALANINE AMINOTRANSFERASE 50 U/L (12-78); ALBUMIN 3.9 G/DL (3.4-5.0); ALBUMIN/GLOBULIN RATIO 1.1 (1.1-1.5); ALKALINE PHOSPHATASE 49 IU/L (46-116); ANION GAP 10 (8-16); ASPARTATE AMINO TRANSFERASE 26 U/L (10-37); BILIRUBIN,TOTAL 0.5 MG/DL (0.1-1.0); BLOOD UREA NITROGEN 18 MG/DL (7-18); BUN/CREATININE RATIO 14.5 (5.4-32.0); CHLORIDE 106 MMOL/L (99-107); CHOL/HDL RATIO 3.4 (0.00-4.99); CHOLESTEROL 171 MG/DL (0-200); CREATININE 1.24 MG/DL (0.60-1.10); GLUCOSE 97 MG/DL (70-104); HDL CHOLESTEROL 51 MG/DL (35-60); LDL CHOLESTEROL 95 MG/DL (50-100); SODIUM 143 MMOL/L (135-145); TOTAL CARBON DIOXIDE 27.5 MMOL/L (24-32); TOTAL PROTEIN 7.6 G/DL (6.4-8.2); TRIGLYCERIDES 85 MG/DL (20-135); eGFR 62 ML/MIN
[2021-04-02 08:14] LABS: PSA, ULTRASENSITIVE W/O SERIAL 0.826 ng/mL (0.000-4.000)
== END 2021-03-31 23:59 | disposition home or self-care (01) ==
LOC: LAB 12:23
PROVIDERS: ATTEND General Practice
DX: E55.9 Vitamin D deficiency, unspecified (principal)
CPT/HCPCS: 36415; 80053; 80061; 81003; 82306; 82607; 84153; 84443; 85025

== ENCOUNTER 2022-03-25 11:56 | Outpatient (CLI) | payer BC ==
[2022-03-25 12:55] LABS: CLARITY,URINE CLEAR (Clear); COLOR,URINE YELLOW (Yellow); GLUCOSE, URINE NEGATIVE (Neg); KETONES,URINE NEGATIVE (Neg); LEUKOCYTE ESTERASE ,URINE NEGATIVE (Neg); NITRITES, URINE NEGATIVE (Neg); OCCULT BLOOD,URINE NEGATIVE (Neg); PH,URINE 5.5 (4.8-8.0); PROTEIN,URINE NEGATIVE (Neg); UROBILINOGEN,URINE 0.2 E.U/dL (0.2-1.0)
[2022-03-25 12:59] LABS: BASOPHILS % (AUTO) 0.7 % (0-1); EOSINOPHILS # (AUTO) 0.2 X10'3 (0-0.9); EOSINOPHILS % (AUTO) 3.9 % (0-6); HEMATOCRIT 44.2 % (42.0-52.0); HEMOGLOBIN 14.6 g/dl (14.0-17.9); LYMPHOCYTES # (AUTO) 1.7 X10'3 (1.1-4.8); LYMPHOCYTES % (AUTO) 32.5 % (21-51); MEAN CORPUSCULAR HEMOGLOBIN 30.1 PG (27.0-31.0); MEAN CORPUSCULAR HGB CONC 33.1 g/dL (33.0-36.5); MEAN CORPUSCULAR VOLUME 90.9 FL (78-98); MEAN PLATELET VOLUME 7.8 FL (7.4-10.4); MONOCYTES # (AUTO) 0.5 X10'3 (0-0.9); MONOCYTES % (AUTO) 9.1 % (2-12); NEUTROPHILS # (AUTO) 2.9 X10'3 (1.8-7.7); NEUTROPHILS % (AUTO) 53.8 % (42-75); PLATELET COUNT 316 X10'3 (140-440); RED BLOOD COUNT 4.86 X10'6 (4.70-6.10); RED CELL DISTRIBUTION WIDTH 13.1 % (11.5-14.5); WHITE BLOOD COUNT 5.3 X10'3 (4.5-11.0)
[2022-03-25 13:08] LABS: UA COLLECTION TYPE CLN CATCH MIDSTREAM
[2022-03-25 13:19] LABS: ALANINE AMINOTRANSFERASE 45 U/L (12-78); ALBUMIN 3.8 G/DL (3.4-5.0); ALKALINE PHOSPHATASE 51 IU/L (46-116); ANION GAP 6 (8-16); ASPARTATE AMINO TRANSFERASE 26 U/L (10-37); BILIRUBIN,TOTAL 0.5 MG/DL (0.1-1.0); BLOOD UREA NITROGEN 17 MG/DL (7-18); BUN/CREATININE RATIO 12.4 (5.4-32.0); CALCIUM 8.8 MG/DL (8.5-10.1); CHLORIDE 108 MMOL/L (99-107); CHOL/HDL RATIO 3.1 (0.00-4.99); CHOLESTEROL 155 MG/DL (0-200); CREATININE 1.37 MG/DL (0.60-1.10); GLUCOSE 100 MG/DL (70-104); HDL CHOLESTEROL 50 MG/DL (35-60); LDL CHOLESTEROL 98 MG/DL (50-100); POTASSIUM 3.9 MMOL/L (3.5-5.1); SODIUM 143 MMOL/L (135-145); TOTAL CARBON DIOXIDE 29.5 MMOL/L (24-32); TOTAL PROTEIN 7.5 G/DL (6.4-8.2); TRIGLYCERIDES 77 MG/DL (20-135); eGFR 55 ML/MIN
[2022-03-26 11:10] LABS: % FREE PSA 33.8 % (.); PSA, FREE 0.27 ng/mL
== END 2022-03-25 23:59 | disposition home or self-care (01) ==
LOC: LAB 11:56
PROVIDERS: ATTEND General Practice
DX: Z12.5 Encounter for screening for malignant neoplasm of prostate (principal); E55.9 Vitamin D deficiency, unspecified; E78.5 Hyperlipidemia, unspecified; Z79.899 Other long term (current) drug therapy
CPT/HCPCS: 36415; 80053; 80061; 81003; 82306; 82607; 84153; 84154; 84443; 85025

== ENCOUNTER 2022-05-19 09:29 | Outpatient (CLI) | payer BC ==
[2022-05-19 10:24] LABS: ALANINE AMINOTRANSFERASE 48 U/L (12-78); ALBUMIN 3.6 G/DL (3.4-5.0); ALKALINE PHOSPHATASE 49 IU/L (46-116); ANION GAP 5 (8-16); ASPARTATE AMINO TRANSFERASE 27 U/L (10-37); BILIRUBIN,TOTAL 0.5 MG/DL (0.1-1.0); BLOOD UREA NITROGEN 16 MG/DL (7-18); BUN/CREATININE RATIO 13.1 (5.4-32.0); CALCIUM 8.8 MG/DL (8.5-10.1); CHLORIDE 108 MMOL/L (99-107); CREATININE 1.22 MG/DL (0.60-1.10); GLUCOSE 100 MG/DL (70-104); POTASSIUM 3.6 MMOL/L (3.5-5.1); SODIUM 142 MMOL/L (135-145); TOTAL PROTEIN 7.2 G/DL (6.4-8.2); eGFR 62 ML/MIN
== END 2022-05-19 23:59 | disposition home or self-care (01) ==
LOC: RAD 09:29
PROVIDERS: ATTEND General Practice
DX: N25.9 Disorder resulting from impaired renal tubular function, unspecified (principal)
CPT/HCPCS: 36415; 80053

== ENCOUNTER 2023-04-20 12:40 | Outpatient (CLI) | payer BC ==
[2023-04-20 13:31] LABS: BILIRUBIN,URINE NEGATIVE (Neg); CLARITY,URINE SLIGHTLY CLOUDY (Clear); COLOR,URINE YELLOW (Yellow); GLUCOSE, URINE NEGATIVE (Neg); KETONES,URINE NEGATIVE (Neg); LEUKOCYTE ESTERASE ,URINE NEGATIVE (Neg); NITRITES, URINE NEGATIVE (Neg); OCCULT BLOOD,URINE NEGATIVE (Neg); PROTEIN,URINE NEGATIVE (Neg)
[2023-04-20 13:33] LABS: BASOPHILS % (AUTO) 0.7 % (0-1); EOSINOPHILS # (AUTO) 0.1 X10'3 (0-0.9); EOSINOPHILS % (AUTO) 2.8 % (0-6); HEMATOCRIT 45.3 % (42.0-52.0); HEMOGLOBIN 15.1 g/dl (14.0-17.9); LYMPHOCYTES # (AUTO) 1.7 X10'3 (1.1-4.8); LYMPHOCYTES % (AUTO) 34.5 % (21-51); MEAN CORPUSCULAR HEMOGLOBIN 30.3 PG (27.0-31.0); MEAN CORPUSCULAR HGB CONC 33.4 g/dL (33.0-36.5); MEAN CORPUSCULAR VOLUME 90.7 FL (78-98); MONOCYTES # (AUTO) 0.5 X10'3 (0-0.9); NEUTROPHILS # (AUTO) 2.5 X10'3 (1.8-7.7); PLATELET COUNT 312 X10'3 (140-440); RED BLOOD COUNT 4.99 X10'6 (4.70-6.10); RED CELL DISTRIBUTION WIDTH 13.1 % (11.5-14.5); WHITE BLOOD COUNT 4.9 X10'3 (4.5-11.0)
[2023-04-20 13:39] LABS: UA COLLECTION TYPE CLN CATCH MIDSTREAM
[2023-04-20 13:40] LABS: HYALINE CASTS 0-3 /LPF (NEGATIVE); MUCUS STRANDS FEW /LPF (Neg); SQUAMOUS EPITHELIAL CELL,UR FEW /LPF (FEW)
[2023-04-20 13:41] LABS: BACTERIA,URINE 1+ /HPF (Neg); RBC,URINE 0-2 /HPF (0-2); WBC,URINE 0-4 /HPF (0-4)
[2023-04-20 13:56] LABS: ALANINE AMINOTRANSFERASE 41 U/L (12-78); ALBUMIN 3.9 G/DL (3.4-5.0); ALKALINE PHOSPHATASE 46 IU/L (46-116); ANION GAP 8 (8-16); ASPARTATE AMINO TRANSFERASE 26 U/L (10-37); BILIRUBIN,TOTAL 0.6 MG/DL (0.1-1.0); BLOOD UREA NITROGEN 19 MG/DL (7-18); BUN/CREATININE RATIO 15.1 (10.0-20.0); CALCIUM 9.3 MG/DL (8.5-10.1); CHLORIDE 108 MMOL/L (99-107); CHOL/HDL RATIO 3.4 (0.00-4.99); CHOLESTEROL 152 MG/DL (0-200); CREATININE 1.26 MG/DL (0.60-1.10); GLUCOSE 98 MG/DL (70-104); HDL CHOLESTEROL 45 MG/DL (35-60); LDL CHOLESTEROL 84 MG/DL (50-100); POTASSIUM 4.2 MMOL/L (3.5-5.1); SODIUM 144 MMOL/L (135-145); THYROID STIMULATING HORMONE 1.45 ulU/ml (0.34-4.50); TOTAL CARBON DIOXIDE 27.6 MMOL/L (24-32); TOTAL PROTEIN 7.9 G/DL (6.4-8.2); TRIGLYCERIDES 60 MG/DL (20-135); eGFR 60 ML/MIN
== END 2023-04-20 23:59 | disposition home or self-care (01) ==
LOC: RAD 12:40
PROVIDERS: ATTEND Registered Nurse
DX: M25.532 Pain in left wrist (principal); E78.5 Hyperlipidemia, unspecified; K21.9 Gastro-esophageal reflux disease without esophagitis; N28.9 Disorder of kidney and ureter, unspecified; E55.9 Vitamin D deficiency, unspecified; R33.9 Retention of urine, unspecified; F41.9 Anxiety disorder, unspecified; Z71.89 Other specified counseling; Z86.711 Personal history of pulmonary embolism
CPT/HCPCS: 36415; 73110; 80053; 80061; 81001; 82306; 82607; 82746; 84153; 84402; 84403; 84443; 85025

== ENCOUNTER 2023-12-13 03:18 | Emergency (ER) | payer BC ==
[~2023-12-13] VITALS: Ht 175.3 cm; Wt 80.5 kg
[2023-12-13 03:20] VITALS: BP 128/88; PULSE 71; RESP 16; TEMP 98; O2SAT 97
[2023-12-13] MEDS ORDERED: AMOX500C2 PO (04:06)
== END 2023-12-13 04:31 | disposition home or self-care (01) ==
LOC: ER 03:19
DX: H66.93 Otitis media, unspecified, bilateral (principal); E78.00 Pure hypercholesterolemia, unspecified; Z91.013 Allergy to seafood; Z79.82 Long term (current) use of aspirin; Z79.899 Other long term (current) drug therapy; Z72.89 Other problems related to lifestyle; Z86.711 Personal history of pulmonary embolism
CPT/HCPCS: 99283

== ENCOUNTER 2024-05-09 13:43 | Outpatient (CLI) | payer BC ==
[2024-05-09 14:20] LABS: BILIRUBIN,URINE NEGATIVE (Neg); CLARITY,URINE CLEAR (Clear); COLOR,URINE YELLOW (Yellow); GLUCOSE, URINE NEGATIVE (Neg); KETONES,URINE NEGATIVE (Neg); LEUKOCYTE ESTERASE ,URINE NEGATIVE (Neg); NITRITES, URINE NEGATIVE (Neg); OCCULT BLOOD,URINE NEGATIVE (Neg); PH,URINE 5.5 (4.8-8.0); PROTEIN,URINE NEGATIVE (Neg); UROBILINOGEN,URINE 0.2 E.U/dL (0.2-1.0)
[2024-05-09 14:26] LABS: UA COLLECTION TYPE CLN CATCH MIDSTREAM
[2024-05-09 15:26] LABS: ALANINE AMINOTRANSFERASE 40 U/L (12-78); ALBUMIN 3.9 G/DL (3.4-5.0); ALBUMIN/GLOBULIN RATIO 1.1 (1.1-1.5); ALKALINE PHOSPHATASE 46 IU/L (46-116); ANION GAP 6 (8-16); ASPARTATE AMINO TRANSFERASE 25 U/L (10-37); BASOPHILS % (AUTO) 0.9 % (0-1); BILIRUBIN,TOTAL 0.5 MG/DL (0.1-1.0); BLOOD UREA NITROGEN 15 MG/DL (7-18); BUN/CREATININE RATIO 11.9 (10.0-20.0); CALCIUM 9.1 MG/DL (8.5-10.1); CHLORIDE 107 MMOL/L (99-107); CHOL/HDL RATIO 2.9 (0.00-4.99); CHOLESTEROL 172 MG/DL (0-200); CREATININE 1.26 MG/DL (0.60-1.10); EOSINOPHILS # (AUTO) 0.1 X10'3 (0-0.9); EOSINOPHILS % (AUTO) 1.7 % (0-6); GLUCOSE 91 MG/DL (70-104); HDL CHOLESTEROL 60 MG/DL (35-60); HEMOGLOBIN 14.6 g/dl (14.0-17.9); LDL CHOLESTEROL 97 MG/DL (50-100); LYMPHOCYTES # (AUTO) 1.6 X10'3 (1.1-4.8); LYMPHOCYTES % (AUTO) 33.5 % (21-51); MEAN CORPUSCULAR HEMOGLOBIN 30.5 PG (27.0-31.0); MEAN CORPUSCULAR HGB CONC 33.3 g/dL (33.0-36.5); MEAN CORPUSCULAR VOLUME 91.4 FL (78-98); MEAN PLATELET VOLUME 7.7 FL (7.4-10.4); MONOCYTES # (AUTO) 0.4 X10'3 (0-0.9); MONOCYTES % (AUTO) 7.7 % (2-12); NEUTROPHILS # (AUTO) 2.7 X10'3 (1.8-7.7); NEUTROPHILS % (AUTO) 56.2 % (42-75); PLATELET COUNT 304 X10'3 (140-440); POTASSIUM 4.1 MMOL/L (3.5-5.1); RED BLOOD COUNT 4.81 X10'6 (4.70-6.10); RED CELL DISTRIBUTION WIDTH 13.3 % (11.5-14.5); SODIUM 141 MMOL/L (135-145); THYROID STIMULATING HORMONE 1.88 ulU/ml (0.34-4.50); TOTAL CARBON DIOXIDE 27.9 MMOL/L (24-32); TOTAL PROTEIN 7.5 G/DL (6.4-8.2); TRIGLYCERIDES 35 MG/DL (20-135); WHITE BLOOD COUNT 4.8 X10'3 (4.5-11.0); eGFR 60 ML/MIN
[2024-05-10] MEDS ORDERED: morphine 10mg/ml inj. ONE (11:25)
[2024-05-11 08:11] LABS: FOLATE SERUM(FOLIC) 12.6 ng/mL (>3.0); TESTOSTERONE, SERUM 602 ng/dL (264-916)
[2024-05-16 19:21] LABS: TESTOSTERONE, FREE, DIRECT 11.3 pg/mL (7.2-24.0)
== END 2024-05-09 23:59 | disposition home or self-care (01) ==
LOC: RAD 13:43
PROVIDERS: ATTEND Registered Nurse
DX: E78.5 Hyperlipidemia, unspecified (principal); R33.9 Retention of urine, unspecified; E55.9 Vitamin D deficiency, unspecified; Z71.89 Other specified counseling; F41.9 Anxiety disorder, unspecified; K21.9 Gastro-esophageal reflux disease without esophagitis; N28.9 Disorder of kidney and ureter, unspecified; Z86.711 Personal history of pulmonary embolism
CPT/HCPCS: 36415; 80053; 80061; 81003; 82306; 82607; 82746; 84153; 84402; 84403; 84443; 85025; J2274